=== PATIENT | male | born 1960 | race Caucasian/White ===

== ENCOUNTER → 2024-04-12 07:00 | Outpatient (REF) | payer OTHER, SELFPAY | LOC: HWRCS 07:00 | PROVIDERS: ATTENDING PHYSICIAN Internal Medicine Cardiovascular Disease; FAMILY PHYSICIAN Family Medicine | DX: R94.31 Abnormal electrocardiogram [ECG] [EKG] (principal); R06.02 Shortness of breath | CPT/HCPCS: 93306 ==